=== PATIENT | male | born 1985 | race African-American/Black ===

== ENCOUNTER 2021-06-22 18:25 | Emergency (ER) | payer OTHER, SELFPAY ==
[2021-06-22] MEDS ORDERED: Ketorolac Tromethamine 30 MG/ML VIAL ONE (20:13)
== END 2021-06-22 20:30 | disposition home or self-care (01) ==
LOC: ERS 18:25
DX: S49.92XA Unspecified injury of left shoulder and upper arm, initial encounter (principal); F17.210 Nicotine dependence, cigarettes, uncomplicated; V89.2XXA Person injured in unspecified motor-vehicle accident, traffic, initial encounter
CPT/HCPCS: J1885